=== PATIENT | female | born 1975 | race Caucasian/White ===

== ENCOUNTER 2020-09-10 02:34 | Outpatient (CLI) | payer OTHER, SELFPAY ==
[2020-09-10 19:47] LABS: SARS-CoV-2 RNA PCR Negative
== END 2020-09-10 02:35 | disposition home or self-care (01) ==
LOC: ANHCOVIDDT 02:34
PROVIDERS: PCP Internal Medicine; Visit Provider Obstetrics & Gynecology
DX: Z01.812 Encounter for preprocedural laboratory examination (principal); Z20.828 Contact with and (suspected) exposure to other viral communicable diseases
CPT/HCPCS: 87635; C9803; U0003

== ENCOUNTER 2020-09-10 09:14 | Outpatient (CLI) | payer OTHER, SELFPAY ==
[2020-09-10 09:42] LABS: Basophils Percent Auto 0.8 % (0.2-1.2); Eosinophils Absolute Auto 0.2 K/mm3 (0-0.3); Hematocrit 35.4 % (37.0-47.0); Hemoglobin 10.1 g/dL (12.0-15.0); Immature Granulocyte Absolute 0.02 K/mm3 (0.00-0.031); Immature Granulocyte Percent A 0.4 % (0-0.5); Mean Corpuscular HGB Conc 28.5 g/dl (32-36); Mean Corpuscular Volume 73.8 fl (80-100); Mean Platelet Volume 9.2 fl (7.4-10.4); Monocytes Absolute Auto 0.5 K/mm3 (0.1-0.6); Monocytes Percent Auto 9.1 % (2.6-8.5); Neutrophils Absolute Auto 2.5 K/mm3 (1.3-6.7); Neutrophils Percent Auto 47.7 % (45.5-73.1); Platelet Count Result 369 k/mm3 (150-375); White Blood Count 5.3 K/mm3 (4.5-10.0)
[2020-09-10 09:53] LABS: Hypochromasia 1+ (NORMAL); Platelet Estimate Adequate (Adequate)
== END 2020-09-10 09:15 | disposition home or self-care (01) ==
PROVIDERS: PCP Internal Medicine; Visit Provider Obstetrics & Gynecology
DX: N85.2 Hypertrophy of uterus (principal)
CPT/HCPCS: 36415; 85025; 86850; 86900; 86901

== ENCOUNTER 2020-09-13 04:37 | Day surgery (SDC) | payer OTHER, SELFPAY ==
[2020-09-03 12:53] VITALS: BMI 28.1
--- NOTE | 2020-09-10 10:05 | P.HP_ITS ---
H&P: HPI History of Present Illness Date/Time: 09/10/20 10:05 Chief complaint: Enlarged Uterus/ Fibroid/Pelvic Pain Narrative: Brittaney Loja is a 44 year old female admitted for robotic total vaginal her pain bilateral salpingectomy secondary to enlarged uterus uterine fibroids, pelvic pain and irregular bleeding refractory to medical therapy she had an ablation which failed she has felt lightheaded she has had pain with intercourse and she wants to have this definitively cured she has had a normal Pap within the last month. Risks and benefits reviewed including exclusive , aspiration pneumonia, bleeding, transfusion perforation to bowel, bladder, ureters, or other internal organs primary. Patient understanding. She had all questions answered. She received the ACOG handout entitled hysterectomy as well the VG handout. 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 Spiritual care concerns: No Meds Home Medications and Allergies Home Medications Medication Instructions Recorded Confirmed Type sumatriptan succinate 100 mg PO DIRECTED PRN 09/03/20 09/03/20 History Allergies Allergy/AdvReac Type Severity Reaction Status Date / Time Sulfa (Sulfonamide Allergy Unknown Hives Verified 09/03/20 12:53 Antibiotics) Exam Const: General: no acute distress Eyes: General: appearance normal, both eyes and all related structures Neck: Neck: supple and no JVD Thyroid: thyroid normal Resp: Effort & Inspection: normal respiratory effort Auscultation: clear to auscultation bilaterally Cardio: Rate: regular rate Rhythm: regular rhythm GI: Inspection: non-distended GI Palp: Yes Soft to palpation, No Tenderness to palpation present (GI) and No Guarding due to palpation present (GI) Auscultation: normal bowel sounds : General: Yes bladder normal to inspection External Female Exam: normal external appearance Speculum Exam - Vagina: normal appearance of the vagina Speculum Exam - Cervix: normal appearance of the cervix Bimanual exam- vagina & uterus: enlarged Skin: General skin exam: no rashes or lesions noted Extrem: General: normal to inspection and no edema Psych: Mental Status: mental status grossly normal Affect: normal affect Assessment and Plan Additional Plan impression: Enlarged uterus pelvic pain bleeding in a patient status post ablation Plan: Robotic total vaginal hysterectomy bilateral salpingectomy
--- NOTE | 2020-09-12 09:12 | WPDANESEPPF ---
Anes - Initial Pre Proc Eval Procedure: Operation Date: 09/13/20 09:30 Proposed Procedures p Robotic Assisted Total Vaginal Hysterectomy, Bilateral Salpingectomy - Israel Coelho MD Date/Time: 09/12/20 09:12 Surgeon: Israel Coelho MD Pre Op Diagnosis: Enlarged Uterus/ Fibroid/Pelvic Pain Patient Data Age: 44 Gender: F Height: 1.73 m Weight: 83.91 kg Allergies Allergy/AdvReac Type Severity Reaction Status Date / Time Sulfa (Sulfonamide Allergy Unknown Hives Verified 09/03/20 12:53 Antibiotics) Home Medications Medication Instructions Recorded Confirmed Type sumatriptan succinate 100 mg PO DIRECTED PRN 09/03/20 09/03/20 History hydrocodone-acetaminophen [[place]] 1 tablet PO Q4H PRN #30 tablet 09/13/20 Rx Patient hx anesthesia problems: none Family hx anesthesia problems: none PMFSH Past Medical History Medical History Migraine Surgical History Surgical History (Updated 09/12/20 @ 09:12 by Damon Chin DO) H/O breast augmentation Family History Family History Father Hypertension Malignant neoplasm of prostate Social History Social History Smoking packs per day: 0 Smoking cigarettes per day: 0.0 Smoking status: Never smoker Alcohol intake: current Drinks per week: 2 Substance use: never 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 Questions were solicited and answers provided to the satisfaction of the patient/family/POA.
[2020-09-13] VITALS (14 sets, daily range): BP systolic 105–124; BP diastolic 58–82; PULSE 64–104; RESP 14–18; TEMP 36–37.6; O2SAT 95–100
--- NOTE | 2020-09-13 06:33 | WPDHPUPDATE1 ---
History and Physical Update Update Date/Time: 09/13/20 06:33 History and Physical has been reviewed, including an updated exam of the patient. There are NO changes in the patient's condition. Risks, benefits, and alternatives have been discussed and questions answered. Patient agrees to proceed with procedure.
[2020-09-13] MEDS: ACETAMINOPHEN 500 MG TABLET 1000 MG PO (08:12)
[2020-09-13] MEDS: LACTATED RINGERS 1,000 ML 30 ML IV CONT ×2 (08:15→10:14)
[2020-09-13] MEDS: KETOROLAC 15 MG/ML VIAL (*BKC) IV PUSH (08:19)
[2020-09-13] MEDS: ceFAZolin 2 GM/D5W 50 ML 2 GM/50 ML BAG IVPB (08:59)
--- NOTE | 2020-09-13 10:02 | P.OP_ITS ---
Procedure Note - Detailed Date of procedure: 09/13/20 Pre-op diagnosis: Enlarged Uterus/ Fibroid/Pelvic Pain Surgeon: Israel Coelho MD Postop diagnosis: Enlarged uterus /uterine fibroids/pelvic pain Procedure: Robotic total vaginal hysterectomy and bilateral salpingectomies EBL: 25cc Anesthesia: General endotracheal Complications: None Findings: A markedly enlarged uterus. Normal-appearing ovaries and tubes. Description of procedure patient was prepped and draped in normal sterile fashion and placed in the dorsal lithotomy position. Under excellent general endotracheal anesthesia weighted speculum placed in posterior fornix vagina. Anterior lip of the cervix grasped with single-tooth tenaculum the uterus sounded to 11cm. Serial dilatation with fragmented dilators performed followed by passes 10. AMPARO and the number and the 3. Cold. a 16 Pashto catheter was placed in the bladder and drained of clear urine. The weighted speculum was removed. Gloves were changed. A supraumbilical incision made in the Veress needle passed in the abdomen. The abdomen was filled with CO2 gas [id number]. The 8mm trocar was advanced in the abdomen and no injury seen. The patient placed in Trendelenburg and right and left lateral quadrant incisions made. The 8mm trocars advanced under direct vis ualization assuring no injury. A right upper quadrant incision made the 10mm trocar advanced under direct visualization assuring no injury. The robot was docked. Attention was turned to the counselor marriage and family. The left round ligament was grasped, burned, cut. Anteriorly the bladder was dissected away from the cervix and uterus caudally to the opposite round ligament which was clamped, burned, cut. Next the left fallopian tube was dissected away from ovary complex to its base at the uterus this was repeated with the right tube on the opposite side. The left utero-ovarian ligament was clamped, burned, cut. And brought to the level this was then brought to the level of the previously cut round ligament. In like fashion conserving the right ovary the utero-ovarian ligament was clamped, burned, cut and brought to the level of the previously cut round ligament. The left cardinal and broad ligaments were then serially skeletonized. They were clamped, burned, cut and brought down the lateral edge of the uterus. Large tortuous blood vessels were seen and these were individually clamped, burned, cut. In like fashion the cardinal and broad ligaments on the right were serially skeletonized. These were clamped, burned, cut and brought down the lateral edge of the uterus until the uterine vessels could be seen on the right. These were then individually clamped, burned, cut. Excellent blanching of the uterus was seen. A colpotomy incision was made in the uterus cervix and tubes removed through the vagina. Blood loss estimated at25cc or less at that point. The vagina was then closed with continuous running 0V lock from lateral edge to lateral edge and back to the midline. Irrigation undertaken until clear. All pedicles appeared dry. Blood loss was estimated at25cc. The robot was then undocked. Gas removed from the abdomen. The incisions closed with 4 O Monocryl and glue. The patient was awakened. She went to recovery in satisfactory condition. All sponge, needle, instrument counts were correct. There were no immediate complications noted
[2020-09-13] MEDS: fentaNYL CITRATE INJ (*CRX) 100 MCG/2 ML VIAL 25 MCG IV PUSH ×4 (10:29→10:54)
--- NOTE | 2020-09-13 11:09 | PC.NURSE ---
This patient, Brittaney Loja, was received from PACU per bed to room 282. Patient/family oriented to unit policies and routines
[2020-09-13] MEDS: DEXTROSE 5%/LACTATED RINGERS 1,000 ML 125 ML IV CONT (12:53)
[2020-09-13] MEDS: ONDANSETRON INJ 4 MG/2 ML VIAL IV PUSH (13:35)
[2020-09-13] MEDS: KETOROLAC 30 MG/ML VIAL (*BKC) IV PUSH ×2 (13:35→20:12)
[2020-09-14] VITALS: BP 102/63; PULSE 94; RESP 18; TEMP 37.2; O2SAT 97
[2020-09-14] MEDS: KETOROLAC 30 MG/ML VIAL (*BKC) IV PUSH (01:27)
[2020-09-14] MEDS: HYDROcodone/acetaminophen (*CRX) 10-325 MG TABLET 1 TAB PO (01:28)
[2020-09-14 04:55] VITALS: BP 102/65; PULSE 78; RESP 18; O2SAT 98
[2020-09-14 05:02] LABS: Basophils Percent Auto 0.3 % (0.2-1.2); Eosinophils Percent Auto 0.2 % (0-4.4); Hematocrit 30.9 % (37.0-47.0); Immature Granulocyte Absolute 0.05 K/mm3 (0.00-0.031); Immature Granulocyte Percent A 0.4 % (0-0.5); Lymphocytes Absolute Auto 1.48 K/mm3 (0.9-3.2); Lymphocytes Percent Auto 11.5 % (18.3-44.2); Mean Corpuscular HGB Conc 29.1 g/dl (32-36); Mean Corpuscular Volume 72.2 fl (80-100); Monocytes Absolute Auto 0.7 K/mm3 (0.1-0.6); Monocytes Percent Auto 5.7 % (2.6-8.5); Neutrophils Absolute Auto 10.5 K/mm3 (1.3-6.7); Neutrophils Percent Auto 81.9 % (45.5-73.1); Platelet Count Result 303 k/mm3 (150-375); Red Blood Count 4.28 M/mm3 (4.2-5.4); Red Cell Distribution Width 17.7 % (11.5-14.5); White Blood Count 12.8 K/mm3 (4.5-10.0)
[2020-09-14] MEDS: ENOXAPARIN 40 MG/0.4 ML SYRINGE SUB-Q (07:17)
[2020-09-14] MEDS: SIMETHICONE 80 MG TAB.CHEW PO (07:18)
[2020-09-14] MEDS: HYDROcodone/acetaminophen (*CRX) 5-325 MG TABLET 1 TAB PO ×2 (07:18→10:27)
[2020-09-14] MEDS: DOCUSATE SODIUM 100 MG CAPSULE PO (07:18)
[2020-09-14 07:36] VITALS: BP 111/63; PULSE 79; RESP 18; TEMP 36.8
--- NOTE | 2020-09-14 08:08 | P.DS_ITS ---
DS: Admitting Diagnosis Admitting Diagnosis Admitting Diagnosis: Enlarged Uterus/ Fibroid/Pelvic Pain DS: Summary Hospital Course Hospital Course: Brittaney Loja was admitted after robotic assisted total laparoscopic hysterectomy and bilateral salpingectomy for abnormal fibroid uterus and pelvic pain. The above procedure was performed with no complications. She is doing well post op. She states her pain is well controlled with PO medications. She reports minimal bleeding. She is ambulating up to the chair. Her linn catheter was removed. She is tolerating PO without N/V. She reports passing flatus. Status at Discharge Overall status at discharge: patient is progressing back to baseline Time Spent with Patient Time attestation: Total time spent providing and/or coordinating discharge services: Time spent: Less than 30 minutes Exam Const: General: comfortable and no acute distress Limitations: no limitations Resp: Effort & Inspection: normal respiratory effort Auscultation: clear to auscultation bilaterally Cardio: Rate: regular rate Rhythm: regular rhythm GI: Inspection: non-distended GI Palp: Yes Soft to palpation, Yes Tenderness to palpation present (GI) (milder tenderness to deep palpation) and No Guarding due to palpation present (GI) Auscultation: normal bowel sounds Other: incisions C/D/I covered with dermabond Urinary Catheter: Urinary Catheter: urine clear Skin: General skin exam: normal color Extrem: General: normal to inspection Psych: Mental Status: mental status grossly normal Affect: normal affect DS: Data Data Completed and Pending Pending studies at discharge: Pending at discharge 09/13/20 09:29 Surgical [PTH] Routine Labs on day of discharge: Labs from last 24 hours 09/14/20 04:45 WBC 12.8 H RBC 4.28 Hgb 9.0 L Hct 30.9 L MCV 72.2 L MCH 21.0 L MCHC 29.1 L RDW 17.7 H Plt Count 303 MPV 10.0 Immature Gran % (Auto) 0.4 Neut % (Auto) 81.9 H Lymph % (Auto) 11.5 L [place] % (Auto) 5.7 Eos % (Auto) 0.2 Baso % (Auto) 0.3 Lymph # (Auto) 1.48 [place] # (Auto) 0.7 H Eos # (Auto) 0.0 Baso # (Auto) 0.0 Abs Immat Gran (auto) 0.05 H Absolute Neuts (auto) 10.5 H Absolute Nucleated RBC 0.0 Nucleated RBC % 0.0 Discharge Plan Discharge Patient Disposition: Home, Self-Care Patient Instructions: Laparoscopic Hysterectomy (DC) Stand Alone Forms: General Discharge Instructions Follow-up/Referrals: Israel Coelho MD [Physician] - Discharge Medications: New hydrocodone-acetaminophen [[place]] 5-325 mg tablet 1 tablet PO Q4H PRN (Reason: pain) Qty: 30 RF: 0 No Action sumatriptan succinate 100 mg tablet 100 mg PO DIRECTED PRN (Reason: Migraine Headache) RF: 0
--- NOTE | 2020-09-14 10:24 | PC.NURSE ---
Self care instructions and discharge packet given to pt. Pt. verbalized understanding. No questions voiced.
== END 2020-09-14 10:33 | disposition home or self-care (01) ==
LOC: ANHSURGERY 07:33 → ANHOB2 11:16
PROVIDERS: PCP Internal Medicine; Visit Provider Obstetrics & Gynecology
PROC: (CPT 58552; principal; 2020-09-13 09:30)
DX: D25.0 Submucous leiomyoma of uterus (principal); R10.2 Pelvic and perineal pain
CPT/HCPCS: 58552; S2900; 36415; 85025; 88307; 99199; A9270; J0690; J1100; J1650; J1885; J2250; J2405; J2704; J2710; J3010; J7030; J7120; J7121

== ENCOUNTER 2020-09-25 12:16 | Outpatient (CLI) | payer OTHER, SELFPAY ==
--- NOTE | ~2020-09-25 | MM_ITS ---
EXAMINATION: MM scrn shane implant BI w liseth HISTORY: Screening mammogram TECHNIQUE: Craniocaudal and mediolateral oblique 3-D tomosynthesis images with implant displacement a nd synthetic 2-D images were generated. Craniocaudal and mediolateral oblique views of the breasts wi thout implant displacement were obtained using full field digital mammography. CAD analysis was submi tted and interpreted. COMPARISON: 09/19/2019, 09/12/2018, 09/08/2017 bilateral digital screening mammogram examinations BREAST PARENCHYMAL COMPOSITION: There are scattered areas of fibroglandular density. FINDINGS: Status post bilateral augmentation mammoplasty. There is no evidence of suspicious mass, ca lcification, or architectural distortion to suggest malignancy in either breast. There has been no alvarez spicious interval change. IMPRESSION: 1. No mammographic evidence of malignancy. 2. Recommend routine screening mammography in one year. BI-RADS Category 1: Negative Reviewed, dictated and finalized at location A. 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
== END 2020-09-25 12:17 | disposition home or self-care (01) ==
LOC: ANHIMG 12:19
PROVIDERS: PCP Internal Medicine; Visit Provider Obstetrics & Gynecology
DX: Z12.31 Encounter for screening mammogram for malignant neoplasm of breast (principal)
CPT/HCPCS: 77063; 77067

== ENCOUNTER 2022-11-20 19:23 | Emergency (ER) | payer OTHER, SELFPAY ==
[2022-11-20 19:32] VITALS: BP 121/91; PULSE 90; RESP 16; TEMP 38.4; O2SAT 99
--- NOTE | 2022-11-20 19:39 | ED.URI ---
HPI - URI/Sore Throat General Chief Complaint: Upper Respiratory Infection Stated Complaint: sinus pressure, ear pain/drainage, cough Time Seen by Provider: 11/20/22 19:33 Source: patient Mode of arrival: ambulatory Limitations: no limitations History of Present Illness HPI Narrative: Patient presents today with an approximately 1 week history of productive cough, sore throat, sinus pressure, postnasal drip. She has been in [place] for the past week and just arrived back home approximately 2 hours prior to arrival. Denies known fever or body aches. Denies shortness of breath. She has been taking DayQuil and NyQuil with some relief. She currently rates her pain 11/03. States her sore throat is improved today from previous days. Fever upon arrival was 101.1. Related Data Home Medications Medication Instructions Recorded Confirmed sumatriptan succinate 100 mg tablet 100 mg PO DIRECTED PRN Migraine 09/03/20 11/20/22 Headache Allergies Allergy/AdvReac Type Severity Reaction Status Date / Time Sulfa (Sulfonamide Allergy Severe Hives Verified 11/20/22 19:31 Antibiotics) Review of Systems Review of Systems: CONSTITUTIONAL: Denies body aches, fever, chills, or sweats. EYES: Denies visual changes, redness, or discharge. ENT: Denies rhinorrhea, congestion. + sore throat, bilateral ear pressure, sinus pressure, postnasal drip CARDIOVASCULAR: Denies chest pain, palpitations, or edema. RESPIRATORY: Denies dyspnea.+ cough GASTROINTESTINAL: Denies abdominal pain, nausea, vomiting, or diarrhea. GENITOURINARY: Denies dysuria or hematuria. SKIN: Denies rash, itching, or wounds. MUSCULOSKELETAL: Denies back pain, joint pain, or myalgia. NEUROLOGIC: Denies headache, numbness, tingling, or weakness. PSYCH: Denies depression or anxiety. 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 Please see nursing chart for further information. There is no relevant family history pertinent to the presenting complaint Exam Narrative: GENERAL: Mildly ill-appearing, well-nourished, and in no acute distress. HEAD: Normocephalic, atraumatic. EYES: EOMI. No redness or drainage. Conjunctivae normal. ENT: Mucous membranes pink and moist. Nares congested. No rhinorrhea. TMs normal bilaterally. Throat normal. Uvula midline. NECK: Normal AROM. Supple. No lymphadenopathy. CHEST: No respiratory distress. Clear to auscultation. HEART: Regular rate and rhythm. No murmur appreciated. Normal peripheral pulses. EXTREMITIES: Normal range of motion. No edema. SKIN: Warm, dry, no rash. Capillary refill normal. Normal skin turgor. NEURO: No focal deficits. Alert and oriented x3. Gait steady. PSYCH: Normal affect. No signs of depression or anxiety. Course Course Level of Care: Express Care Visit Vital Signs Vital signs: Vital Signs Temperature 101.1 F H 11/20/22 19:32 Pulse Rate 90 11/20/22 19:32 Respiratory Rate 16 11/20/22 19:32 Blood Pressure 121/91 H 11/20/22 19:32 Pulse Oximetry 99 11/20/22 19:32 Temperature 101.1 F H
== END 2022-11-20 20:07 | disposition home or self-care (01) ==
PROVIDERS: Emergency Provider Nurse Practitioner; PCP Internal Medicine
DX: J06.9 Acute upper respiratory infection, unspecified (principal); Z20.822 Contact with and (suspected) exposure to COVID-19
CPT/HCPCS: 87081; 87426; 87804; 87880; 99213; C9803; G0463

== ENCOUNTER 2023-05-10 07:34 | Outpatient (CLI) | payer OTHER, SELFPAY ==
--- NOTE | ~2023-05-10 | MM_ITS ---
EXAMINATION: MM scrn shane implant BI w liseth HISTORY: Screening mammogram TECHNIQUE: Craniocaudal and mediolateral oblique 3-D tomosynthesis images with implant displacement a nd synthetic 2-D images were generated. Craniocaudal and mediolateral oblique views of the breasts wi thout implant displacement were obtained using full field digital mammography. CAD analysis was submi tted and interpreted. COMPARISON: Comparison to multiple prior studies sequentially, with oldest reviewed study dated 07/16. BREAST PARENCHYMAL COMPOSITION: There are scattered areas of fibroglandular density. FINDINGS: There is no evidence of suspicious mass, calcification, or architectural distortion to sugg est malignancy in either breast. There has been no suspicious interval change. IMPRESSION: 1. No mammographic evidence of malignancy. 2. Recommend routine screening mammography in one year. BI-RADS Category 1: Negative Reviewed, dictated and finalized at location A.
== END 2023-05-10 07:35 | disposition home or self-care (01) ==
LOC: ANHIMG 07:37
PROVIDERS: PCP Internal Medicine; Visit Provider Obstetrics & Gynecology
DX: Z12.31 Encounter for screening mammogram for malignant neoplasm of breast (principal)
CPT/HCPCS: 77063; 77067

== ENCOUNTER 2023-09-30 13:50 | Emergency (ER) | payer OTHER, SELFPAY ==
[2023-09-30 14:45] VITALS: BP 104/72; PULSE 98; RESP 16; TEMP 36.5; O2SAT 100
--- NOTE | 2023-09-30 15:04 | ED.URI ---
HPI - URI/Sore Throat General Chief Complaint: Upper Respiratory Infection Stated Complaint: SORE THROAT/CONGESTION Source: patient and RN notes reviewed Mode of arrival: ambulatory Limitations: no limitations History of Present Illness HPI Narrative: 47 y/o female presented for c/o cough, nasal congestion and sore throat worsening over the past 3 days. Denies sob, wheezing, n/v/d/f/c. MD elicited complaint: cough Related Data Home Medications Medication Instructions Recorded Confirmed sumatriptan succinate 100 mg tablet 100 mg PO DIRECTED PRN Migraine 09/03/20 11/20/22 Headache gabapentin 600 mg tablet mg 09/30/23 Allergies Allergy/AdvReac Type Severity Reaction Status Date / Time Sulfa (Sulfonamide Allergy Severe Hives Verified 09/30/23 14:43 Antibiotics) Review of Systems Review of Systems: CONSTITUTIONAL: Endorses malaise, denies chills, sweats, fever EYES: Denies visual changes, redness, or discharge ENT: Reports rhinorrhea, congestion, sore throat CARDIOVASCULAR: Denies chest pain, palpitations, edema RESPIRATORY: Reports cough, post nasal drainage. Denies dyspnea GASTROINTESTINAL: Denies abdominal pain, nausea, vomiting, diarrhea SKIN: Denies rash or itching MUSCULOSKELETAL: Endorses myalgia NEUROLOGIC: Denies headache PMFSH Past Medical History Medical History Migraine Surgical History Surgical History H/O breast augmentation Family History Family History Father Hypertension Malignant neoplasm of prostate Social History Social History Smoking packs per day: 0 Smoking cigarettes per day: 0.0 Smoking status: Never smoker Alcohol intake: current Drinks per week: 2 Substance use: never Living arrangements: with family Occupation/Education: occupation 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 HEAD: Normocephalic EYES: conjunctivae clear ENT: Mucous membranes moist. TMs pearly mcduffie with dull light reflex bilaterally; no tragal tenderness. Oropharynx mildly erythematous without lesions or exudate, no drooling, no hoarseness, no trismus, uvula midline. No tripod positioning, muffled voice, soft palate or pharyngeal wall bulging NECK: Supple. No lymphadenopathy CHEST: Clear to auscultation, breath sounds equal. No wheezing, rhonchi, rales, or stridor. No respiratory distress, speaks in full sentences. HEART: Regular rate and rhythm. No murmur heard. SKIN: Warm, dry, no rash. NEURO: Alert and oriented x3. PSYCH: Normal mood and affect Course Course Emergency Course: Patient is aware of diagnosis, understands and agrees to treatment plan. Anticipatory guidance given. Patient agrees to follow-up as directed and is aware of reasons to seek care at the emergency department. Portions of this record may have been created with voice recognition software Level of Care: Express Care Visit Vital Signs Vital signs: Vital Signs Temperature 97.7 F 09/30/23 14:45 Pulse Rate 98 09/30/23 14:45 Respiratory Rate 16 09/30/23 14:45 Blood Pressure 104/72 09/30/23 14:45 Pulse Oximetry 100 09/30/23 14:45 Temperature 97.7 F 09/30/23 14:45 Pulse Rate 98 09/30/23 14:45 Respiratory Rate 16 09/30/23 14:45 Blood Pressure 104/72 09/30/23 14:45 Pulse Oximetry 100 09/30/23 14:45 reviewed MDM - URI/Sore Throat MDM Narrative Medical decision making narrative: POS covid, Negative flu and strep results reviewed with patient. Discussed physical exam findings. Advised supportive measures and signs/symptoms to go to the ER. Pt is appropriate for outpt treatment and f/u. Differential Diagnosis Di
== END 2023-09-30 15:18 | disposition home or self-care (01) ==
PROVIDERS: Emergency Provider Nurse Practitioner Family; PCP Internal Medicine
DX: U07.1 COVID-19 (principal)
CPT/HCPCS: 87081; 87426; 87804; 87880; 99213; C9803; G0463

== ENCOUNTER 2024-05-19 08:05 | Outpatient (CLI) | payer OTHER, SELFPAY ==
--- NOTE | ~2024-05-19 | MM_ITS ---
EXAMINATION: MM scrn shane implant BI w liseth HISTORY: Screening mammogram TECHNIQUE: Craniocaudal and mediolateral oblique 3-D tomosynthesis images with implant displacement a nd synthetic 2-D images were generated. Craniocaudal and mediolateral oblique views of the breasts wi thout implant displacement were obtained using full field digital mammography. CAD analysis was submi tted and interpreted. COMPARISON: Comparison to multiple prior studies sequentially, with oldest reviewed study dated 08/25. BREAST PARENCHYMAL COMPOSITION: There are scattered areas of fibroglandular density. FINDINGS: There is no evidence of suspicious mass, calcification, or architectural distortion to sugg est malignancy in either breast. There has been no suspicious interval change. IMPRESSION: 1. No mammographic evidence of malignancy. 2. Recommend routine screening mammography in one year. BI-RADS Category 1: Negative Reviewed, dictated and finalized at location B.
== END 2024-05-19 08:06 | disposition home or self-care (01) ==
LOC: ANHIMG 08:06
PROVIDERS: PCP Internal Medicine; Visit Provider Obstetrics & Gynecology
DX: Z12.31 Encounter for screening mammogram for malignant neoplasm of breast (principal)
CPT/HCPCS: 77063; 77067

== ENCOUNTER 2024-10-13 08:10 | Emergency (ER) | payer OTHER, SELFPAY ==
[2024-10-13 08:31] VITALS: BP 105/82; PULSE 74; RESP 18; TEMP 36.9; O2SAT 99
--- NOTE | 2024-10-13 08:50 | ED_ITS ---
HPI - URI/Sore Throat General Chief Complaint: Upper Respiratory Infection Stated Complaint: Sore Throat, Congestion, Drainage, Cough Time Seen by Provider: 10/13/24 08:37 Source: patient and RN notes reviewed Mode of arrival: ambulatory Limitations: no limitations History of Present Illness HPI Narrative: Patient presents today complaining of a 2 day history of sore throat, postnasal drip, cough, fatigue. Denies fever or shortness of breath. She has tried DayQuil and Mucinex nighttime with mild relief. Sore throat increases with swallowing. No history of asthma or COPD. She is a nonsmoker. Patient leaves in 2 days for a 2 week international vacation. and children at home with similar symptoms Related Data Home Medications ?Medication ?Instructions ?Recorded ?Confirmed ?Last Taken ?Type sumatriptan succinate 100 mg tablet 100 mg PO DIRECTED PRN Migraine 09/03/20 10/13/24 Unknown History Headache Allergies Allergy/AdvReac Type Severity Reaction Status Date / Time Sulfa (Sulfonamide Allergy Severe Hives Verified 10/13/24 08:28 Antibiotics) Review of Systems Review of Systems: CONSTITUTIONAL: Denies body aches, fever, chills, or sweats.+ fatigue EYES: Denies visual changes, redness, or discharge. ENT: Denies rhinorrhea, congestion, or otalgia.+ sore throat, postnasal drip CARDIOVASCULAR: Denies chest pain, palpitations, or edema. RESPIRATORY: Denies dyspnea.+ cough GASTROINTESTINAL: Denies abdominal pain, nausea, vomiting, or diarrhea. GENITOURINARY: Denies dysuria or hematuria. SKIN: Denies rash, itching, or wounds. MUSCULOSKELETAL: Denies back pain, joint pain, or myalgia. NEUROLOGIC: Denies headache, numbness, tingling, or weakness. PSYCH: Denies depression or anxiety. 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 Please see nursing chart for further information. There is no relevant family history pertinent to the presenting complaint Exam Narrative: GENERAL: Mildly ill-appearing, well-nourished, and in no acute distress. HEAD: Normocephalic, atraumatic. EYES: EOMI. No redness or drainage. Conjunctivae normal. ENT: Mucous membranes pink and moist. Nares congestion. Bilateral inflamed turbinates. No rhinorrhea. TMs normal bilaterally. Throat normal. Uvula midline. NECK: Normal AROM. Supple. No lymphadenopathy. CHEST: No respiratory distress. Clear to auscultation. HEART: Regular rate and rhythm. No murmur appreciated. EXTREMITIES: Normal range of motion. No edema. SKIN: Warm, dry, no rash. Capillary refill normal. Normal skin turgor. NEURO: No focal deficits. Alert and oriented x3. Gait steady. PSYCH: Normal affect. No signs of depression or anxiety. Course Course Level of Care: Express Care Visit Vital Signs Vital signs: Vital Signs Temperature 98.5 F 10/13/24 08:31 Pulse Rate 74 10/13/24 08:31 Respiratory Rate 18 10/13/24 08:31 Blood Pressure 105/82 10/13/24 08:31 Pulse Oximetry 99 10/13/24 08:31 Oxygen Delivery Room Air 10/13/24 08:31 Temperature 98.5 F 10/13/24 08:31 Pulse Rate 74 10/13/24 08:31 Respiratory Rate 18 10/13/24 08:31 Blood Pressure 105/82 10/13/24 08:31 Pulse Oximetry 99 10/13/24 08:31 Oxygen Delivery Room Air 10/13/24 08:31 Reviewed MDM - URI/Sore Throat MDM Narrative Medical decision making narrative: Symptoms likely viral in etiology. Discussed [id number] medication use and duration of illness. Since [place] will be [place] of the country for the next 2 weeks, she will be provided with a rx for Augmentin, only to start on illness day 10 if she needs it. Also prescription for Tessalon Perle sent to pharmacy for cough. Patient agrees with plan. Anticipatory guidance given. Differential Diagnosis Differential diagnosis: Likely upper respiratory infection, otitis media, viral infection and bronchitis Critical Care Time Critical Care Time Critical Care Time: No Discharge Plan Discharge Clinical Impression: Upper respiratory infection Qualifiers: URI type: unspecified URI Qualified Code(s): J06.9 - Acute upper respiratory infection, unspecified Patient Disposition: Home, Self-Care Condition: Stable Instructions: Upper Respiratory Infection (DC) Additional Instructions: Your symptoms are likely due to a viral illness, which is not treated with antibiotics. Virus symptoms can last for up to 7-10days. Take Tylenol or ibuprofen for pain or fever. As discussed, take the Tessalon Perles for cough. Only start the Augmentin after you have been sick for 10 days if needed, or you develop a fever greater than 100.3. Rest and stay hydrated. Follow up with your PCP in 7 days if symptoms are not improving. Go to the ER immediately if you develop shortness of breath, difficulty swallowing, or any other concerning symptoms. Your blood pressure was elevated above 120/80 today at Urgent Care. This puts you above the threshold for follow up. Please schedule a followup visit with your personal physician as soon as possible, for further evaluation and treatment. Even blood pressure exceeding 120/80 may indicate pre-hypertension. Patient Language: Armenian Prescriptions: New benzonatate 200 mg capsule 200 mg PO TID PRN (Reason: cough) Qty: 30 0RF amoxicillin-pot clavulanate 875-125 mg tablet 1 tablet PO Q12H 7 Days Qty: 14 0RF No Action sumatriptan succinate 100 mg tablet 100 mg PO DIRECTED PRN (Reason: Migraine Headache) Follow-up/Referrals: Sincere,Ilan Nick MD [Primary Care Provider] - Time of Disposition: 09:00
== END 2024-10-13 09:03 | disposition home or self-care (01) ==
PROVIDERS: Emergency Provider Nurse Practitioner; PCP Internal Medicine
DX: J06.9 Acute upper respiratory infection, unspecified (principal)
CPT/HCPCS: 99213; G0463